=== PATIENT | female | born 1955 | race Caucasian/White ===

== ENCOUNTER 2024-02-05 07:26 | Outpatient (CLI) | payer MEDICARE ==
[2024-02-05] MEDS ORDERED: Iopamidol 370 76% 100 ML VIAL ONE (08:57)
== END 2024-02-05 07:27 | disposition home or self-care (01) ==
LOC: CT 07:26
PROVIDERS: ATTEND Obstetrics & Gynecology Gynecologic Oncology
DX: C54.1 Malignant neoplasm of endometrium (principal); R93.89 Abnormal findings on diagnostic imaging of other specified body structures; N20.0 Calculus of kidney; A41.9 Sepsis, unspecified organism; K42.9 Umbilical hernia without obstruction or gangrene; M47.815 Spondylosis without myelopathy or radiculopathy, thoracolumbar region; M47.817 Spondylosis without myelopathy or radiculopathy, lumbosacral region; M43.16 Spondylolisthesis, lumbar region; M51.46 Schmorl's nodes, lumbar region
CPT/HCPCS: 71260; 74177; 82565